=== PATIENT | male | born 1965 | race Caucasian/White ===

== ENCOUNTER 2023-02-19 07:51 | Outpatient (AMB) | payer OTHER, SELFPAY ==
--- NOTE | 2023-02-19 07:54 | MHC.OFFVIS ---
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 Pt reports that he was diagnosed with KAM about 15 years ago. He was told that he had a severe degree of sleep apnea, AHI was 60/hr with heavy snoring. Pt has been using CPAP and had the second CPAP 10 years ago. He uses CPAP nightly, and feels great as long as he use CPAP. He sleeps well and rested and refreshed in the morning. He lost about 50 lb since the last sleep study. His home care company is [employer], and having supplies from [employer]. Sleep questionnaire: Have you ever been diagnosed with a sleep disorder? Yes, KAM about 15 years ago. Have you ever had a sleep study in the past? Yes, in lab sleep study. Have you ever been treated for a sleep disorder? Yes, with CPAP. Do you take medications for a sleep disorder? No. Do you snore? Yes. Do you wake up gasping at night? No with CPAP. Do you have episodes of apneas? Yes. If yes, are they witnessed? Yes. Do you have episodes of nocturnal chest pain or dyspnea? No. Do you have difficulty initiating sleep? No. Do you have difficulty maintaining sleep? No. Do you wake up tired? Yes. Do you have headaches upon awakening? No. Do you wake up with dry mouth or throat? Yes, sometimes. Do you have GERD? No. Do you have nocturia? Not really. Do you have nocturnal leg cramps? Yes. Do you have symptoms of restless legs? No. Do you act out your dreams? No. Sleep hygiene questionnaire: What is your usual sleep routine? Usual bedtime is at 9-10 pm ; Usual wake up time is at 4:30 am. Do you take naps? Yes, sometimes. Is your sleep environment cool, dark, and quiet? Yes. Do you exercise? Yes. Do you take caffeine or other stimulants? Diet soda. Do you use electronics in bed? Watch TV. What is your work schedule? 4:30 am to 3:30 pm Hypersomnolence questionnaire: Do you have daytime tiredness or fatigue? No. Do you easily fall asleep when inactive? No. Have you ever had episodes of sudden weakness? No. Have you ever had episodes of sudden weakness associated with strong emotions? No. PFSH Surgical History (Updated 02/19/23 @ 07:59 by Sho Beltran CMA) History of bilateral knee replacement Family History (Updated 02/19/23 @ 08:01 by Sho Beltran CMA) Father HTN (hypertension) Heart disease Mother Parkinson disease Family/Other Diabetes Social History (Updated 02/19/23 @ 08:01 by Sho Beltran CMA) Alcohol intake: current Alcohol intake frequency: holidays/special occasions only Patient Tobacco Use Status: Never used Tobacco Review of Systems Const All systems reviewed & are unremarkable except as noted in HPI and below ENT Reports Normal hearing present Neuro Reports Normal hearing present Physical Exam Vital Signs: Last Vital Signs Pulse 82 02/19/23 08:02 BP 130/72 02/19/23 08:02 Pulse Ox 98 02/19/23 08:02 Oxygen Delivery Method Room Air 02/19/23 08:02 BMI result Body Mass Index 38.8 Const General: cooperative Nutritional Appearance: obese Orientation/consciousness: patient oriented x3 Limitations: no limitations Neck Neck: Yes full ROM and Yes supple Resp Effort & Inspection: normal respiratory effort and able to speak in complete sentences Neuro General: patient oriented x3, gait normal and moves all extremities Cranial nerves: Yes Bilaterally intact EOM present, Yes Normal facial strength present, Yes Midline tongue present, Yes Symmetric palate elevation present, Yes Normal hearing present, Yes Ability to bilaterally rotate head present and Yes Ability to bilaterally elevate shoulders present Cognition (Neuro): normal cognition Gait exam (Neuro): Normal gait present Psych Appearance: grossly normal Mental Status: mental status grossly normal Speech and movement: Normal speech and movement present Affect: normal affect Attitude: cooperative Assessment & Plan Assessment & Plan (1) Obese: Code(s): E66.9 - Obesity, unspecified (2) KAM on CPAP: Comment: Hx of severe degree of sleep apnea. The AHI was 60/hr with heavy snoring. Code(s): G47.33 - Obstructive sleep apnea (adult) (pediatric) Plan Pt is advised to undergo in lab sleep study to assess for sleep apnea. Will f/u with pt after study to discuss results and appropriate treatment options. Continue to practice sleep hygiene and daily exercise. Wt reduction advised. Pt to call with any worsening concerns or questions. Orders: Orders RT PSG in-lab sleep study Today E11.9 - Type 2 diabetes mellitus without complications, E66.9 - Obesity, unspecified, G47.33 - Obstructive sleep apnea (adult) (pediatric), I10 - Essential (primary) hypertension Coding Level of Care Code New Pt Level 4 (96498) Diagnoses Obese E66.9 KAM on CPAP G47.33
[2023-02-19 08:02] VITALS: BP 130/72; PULSE 82; O2SAT 98; BMI 38.8
== END 2023-02-19 08:32 | disposition home or self-care (01) ==
PROVIDERS: PCP Internal Medicine; Visit Provider Nurse Practitioner Family
DX: E66.9 Obesity, unspecified (principal); G47.33 Obstructive sleep apnea (adult) (pediatric)
CPT/HCPCS: 99204

== ENCOUNTER → 2023-02-19 07:51 | Outpatient (BNVA) | payer OTHER, SELFPAY | PROVIDERS: PCP Internal Medicine; Visit Provider Nurse Practitioner Family ==

== ENCOUNTER → 2023-02-26 19:30 | Outpatient (REF) | payer OTHER, SELFPAY | LOC: HO.SL 19:30 | PROVIDERS: Visit Provider Nurse Practitioner Family | DX: G47.33 Obstructive sleep apnea (adult) (pediatric) (principal) | CPT/HCPCS: 95810 ==

== ENCOUNTER → 2023-02-26 22:03 | Outpatient (BNV) | payer OTHER, SELFPAY | PROVIDERS: Visit Provider Psychiatry & Neurology Neurology | DX: G47.33 Obstructive sleep apnea (adult) (pediatric) (principal) | CPT/HCPCS: 95810 ==

== ENCOUNTER → 2023-04-02 20:30 | Outpatient (REF) | payer OTHER, SELFPAY | LOC: HO.SL 20:30 | PROVIDERS: Visit Provider Nurse Practitioner Family | DX: G47.33 Obstructive sleep apnea (adult) (pediatric) (principal) | CPT/HCPCS: 95811 ==

== ENCOUNTER → 2023-04-02 22:31 | Outpatient (BNV) | payer OTHER, SELFPAY | PROVIDERS: Visit Provider Psychiatry & Neurology Neurology | DX: G47.33 Obstructive sleep apnea (adult) (pediatric) (principal) | CPT/HCPCS: 95811 ==

== ENCOUNTER 2023-06-24 08:44 | Outpatient (AMB) | payer OTHER, SELFPAY ==
--- NOTE | 2023-06-24 08:51 | MHC.OFFVIS ---
Intake Vital Signs 06/24/23 08:53 Height 6 ft Weight 298 lb BMI 40.4 BP 146/90 H Blood Pressure Location Rt brachial Position Sitting Intake Visit Reasons: 4m follow up KAM-Confirmed Intake Note: Patient presents for 4 month follow up Allergies No Known Allergies Allergy (Verified 06/24/23 08:53) HPI HPI Comments History of Present Illness Details 58 y/o male patient presents for follow up of sleep study. The PSG sleep study result was significant for a severe degree of sleep apnea with increased severity in REM sleep. The AHI was 21/hr, REM AHI was 50/hr and oxygen paulina was 85%. Pt was trialed CPAP at 4-8cmH2O and his breathing and oxygenation stabilized with all pressure. The CPAP compliance and therapy response (05/25/23-06/23/23) reviewed. He is on CPAP at 8cmH2O. The usage days 100% and the average usage hours 7 hrs. The AHI was 0.5/hr. Pt reports he uses nasal mask, can have good 7 hrs sleep, rested and refreshed in the morning. He is not tired and has more energy during daytime. [facility] Surgical History History of bilateral knee replacement Family History Father HTN (hypertension) Heart disease Mother Parkinson disease Family/Other Diabetes Social History Alcohol intake: current Alcohol intake frequency: holidays/special occasions only Patient Tobacco Use Status: Never used Tobacco Review of Systems Const All systems reviewed & are unremarkable except as noted in HPI and below ENT Reports Normal hearing present Neuro Reports Normal hearing present Physical Exam Vital Signs: Last Vital Signs BP 146/90 H 06/24/23 08:53 BMI result Body Mass Index 40.4 Const General: cooperative Nutritional Appearance: obese Orientation/consciousness: patient oriented x3 Limitations: no limitations Neck Neck: Yes full ROM and Yes supple Resp Effort & Inspection: normal respiratory effort and able to speak in complete sentences Neuro General: patient oriented x3, gait normal and moves all extremities Cranial nerves: Yes Bilaterally intact EOM present, Yes Normal facial strength present, Yes Midline tongue present, Yes Symmetric palate elevation present, Yes Normal hearing present, Yes Ability to bilaterally rotate head present and Yes Ability to bilaterally elevate shoulders present Cognition (Neuro): normal cognition Gait exam (Neuro): Normal gait present Psych Appearance: grossly normal Mental Status: mental status grossly normal Speech and movement: Normal speech and movement present Affect: normal affect Attitude: cooperative Assessment & Plan Assessment & Plan (1) Obese: Code(s): E66.9 - Obesity, unspecified (2) KAM on CPAP: Comment: Hx of severe degree of sleep apnea with increased severity in REM. The AHI was 21/hr, REM AHI was 50/hr and oxygen paulina was 85% He is on CPAP at 8cmH2O. Code(s): G47.33 - Obstructive sleep apnea (adult) (pediatric) Plan Continue to use CPAP at 8cmH2O as patient experiences good clinical effects, better sleep quality and daytime tiredness has improved. Stressed compliance, use CPAP nightly and more than 4 hrs. Wt reduction advised. Coding Level of Care Code Est Pt Level 3 (01577) Diagnoses Obese E66.9 KAM on CPAP G47.33
[2023-06-24 08:53] VITALS: BP 146/90; BMI 40.4
== END 2023-06-24 09:18 | disposition home or self-care (01) ==
PROVIDERS: PCP Internal Medicine; Visit Provider Nurse Practitioner Family
DX: E66.9 Obesity, unspecified (principal); G47.33 Obstructive sleep apnea (adult) (pediatric)
CPT/HCPCS: 99213

== ENCOUNTER → 2023-06-24 08:44 | Outpatient (BNVA) | payer OTHER, SELFPAY | PROVIDERS: PCP Internal Medicine; Visit Provider Nurse Practitioner Family | DX: G47.33 Obstructive sleep apnea (adult) (pediatric) (principal); E11.9 Type 2 diabetes mellitus without complications; I10 Essential (primary) hypertension; E66.9 Obesity, unspecified ==

== ENCOUNTER 2024-06-24 08:49 | Outpatient (AMB) | payer OTHER, SELFPAY ==
--- NOTE | 2024-06-24 08:55 | MHC.OFFVIS ---
Vital Signs 06/24/24 08:56 Height 6 ft Intake Visit Reasons: 1 yr f/u kam Intake Note: Patient presents for follow up Allergies No Known Allergies Allergy (Verified 06/24/24 08:55) Medication List - Last Reconciled 06/24/24 by Neida Lawton PA-C amlodipine 5 mg PO DAILY atorvastatin 20 mg PO DAILY empagliflozin (Jardiance) 25 mg PO DAILY exenatide microspheres ER (Bydureon BCise) 2 mg subcut QWEEK hydrochlorothiazide 25 mg PO DAILY insulin glargine (Lantus Solostar U-100 Insulin) units subcut insulin glargine (Lantus U-100 Insulin) 50 units subcut QPM lisinopril 40 mg PO DAILY magnesium oxide 400 mg PO DAILY metformin 850 mg PO TID HPI Comments Details: 58 y/o male patient presents for follow up of sleep study. In 2022 Baseline PSG sleep study result was significant for a severe degree of sleep apnea with increased severity in REM sleep. The AHI was 21/hr, REM AHI was 50/hr and oxygen paulina was 85%. Pt was trialed CPAP at 4-8cmH2O and his breathing and oxygenation stabilized with all pressure. The CPAP compliance and therapy response (03/2024-06/23/24) reviewed. He is on CPAP at 8cmH2O. The usage days 100% and the average usage hours 7 hrs. The AHI was 0.5/hr. Pt reports he uses nasal mask daily, cleans his tubing, mask weekly, changes filters as needed. Goes to bed about 9-10pm and gets up at 4am for work with 1x a night for the bathroom. Would like to have travel size machine, he has a good 7 hours of well rested sleep when using the machine. He is not tired and has more energy during daytime. The machine hisses and turns off automatically when not in use, as he wakes in the morning and hangs up his mask. His last A1c was 7, on 3 different meds for diabetes, will discuss [place] with PCP next week. His BP is elevated today, he is on 3 different medications for BP, will see PCP next week, as he does have a FH of dad [place], and mom Parkinsons. Mood, diet and memory is good, will f/u with Labs at PCP's office. BMI is elevated 40.4 today will be f/u with weight managment. [facility] Surgical History History of bilateral knee replacement Family History Father HTN (hypertension) Heart disease Mother Parkinson disease Family/Other Diabetes Social History Alcohol intake: current Alcohol intake frequency: holidays/special occasions only Patient Tobacco Use Status: Never used Tobacco Review of Systems Const All systems reviewed & are unremarkable except as noted in HPI and below Physical Exam Const General: cooperative, comfortable and no acute distress Nutritional Appearance: obese (BMI is 40.4) Orientation/consciousness: patient oriented x3 HEENT Face and sinus: Yes normal facial exam and Yes face symmetric Teeth and gingiva: other ([place] score of 4) Eyes Pupils: Equal, round and reactive pupils present Neck Neck: Yes full ROM and Yes supple Resp Effort & Inspection: normal respiratory effort and able to speak in complete sentences Neuro General: patient oriented x3 and moves all extremities Cranial nerves: Yes CN's II-XII intact bilaterally, Yes Equal, round and reactive pupils present, Yes Normal accommodation reflex present, Yes Bilaterally intact EOM present, Yes Nystagmus not present, Yes Normal facial strength present, Yes Midline tongue present, Yes Ability to bilaterally rotate head present and Yes Ability to bilaterally elevate shoulders present Cognition (Neuro): normal cognition Gait exam (Neuro): Normal gait present Motor exam (neuro): 5/5 motor strength present throughout, Pronator motor function not present, no tremor noted and Normal motor muscle tone present throughout Deep tendon reflexes (DTR's): Right triceps reflex intensity grade: 2+, Left triceps reflex intensity grade: 2+, Rt Biceps (C5, C6): 2+, Left biceps reflex intensity grade: 2+, Right brachioradialis reflex intensity grade: 2+, Left brachioradialis reflex intensity grade: 2+, Right patellar reflex intensity grade: 2+, Left patellar reflex intensity grade: 2+, Right ankle reflex intensity grade: 2+ and Left ankle reflex intensity grade: 2+ Coordination: [id number] test normal Psych Appearance: grossly normal Speech and movement: Normal speech and movement present Affect: normal affect Attitude: cooperative Thought process: Normal thought process present Thought content: Normal thought content present Insight: Good insight present (Psych) Judgement: Good judgement present (Psych) Results Reviewed Results Reviewed: The CPAP compliance and therapy response (03/2024-06/23/24) reviewed. He is on CPAP at 8cmH2O. The usage days 100% and the average usage hours 7 hrs. The AHI was 0.5/hr. Assessment & Plan Assessment & Plan (1) BMI 38.0-38.9,adult: Code(s): Z68.38 - Body mass index [BMI] 38.0-38.9, adult Category: Medical (2) HTN (hypertension): Code(s): I10 - Essential (primary) hypertension Category: Medical (3) KAM on CPAP: Comment: Hx of severe degree of sleep apnea with increased severity in REM. The AHI was 21/hr, REM AHI was 50/hr and oxygen paulina was 85% He is on CPAP at 8cmH2O. Code(s): G47.33 - Obstructive sleep apnea (adult) (pediatric) Category: Medical (4) Leg cramps, sleep related: Code(s): G47.62 - Sleep related leg cramps Category: Medical (5) Irritable mood: Code(s): R45.4 - Irritability and anger Category: Medical Plan Patient Education: Risk of Cardiovascular disease is decreased with good BP Control, he is on 3 BP meds and BP is elevated today: 146/90. #1 Risk Modifier of CV events is hypertension- according to the [place] [employer]. Reduce Stress, mindful therapies, meditate, walk daily, and drink at least 60% of weight in water. Obstructive Sleep Apnea : Improved with Continuous use of CPAP Therapy. Continue use as directed. BMI is Elevated: Good management of Diabetes is essential to preventing neuropathy and other comorbidities. Patient is going to follow up with his PcP in [place], to review Diabetes Protocol, his A1c last checked was 7.1, he is considering Weight management with [facility]. Leg Cramps: Continue taking Magnesium Glycinate 400mg PO at bedtime as needed. Labs: CBC/ CMP/ B12 Folate,MMA, Homocysteine, Vit D, Thyroid Weight Management Referral: [facility]? Patient will f/u with his PCP. F/U in one year or sooner as needed. Orders: Orders Complete Blood Count no Diff Today I10 - Essential (primary) hypertension, Z68.38 - Body mass index [BMI] 38.0-38.9, adult Homocysteine Today G47.33 - Obstructive sleep apnea (adult) (pediatric) TSH reflex Free T4 Today F09 - Unspecified mental disorder due to known physiological condition Comprehensive Met. Panel Today I10 - Essential (primary) hypertension, Z68.38 - Body mass index [BMI] 38.0-38.9, adult Hemoglobin A1c Today I10 - Essential (primary) hypertension, Z68.38 - Body mass index [BMI] 38.0-38.9, adult Methylmalonic Acid Today G47.33 - Obstructive sleep apnea (adult) (pediatric) Vitamin B12 and Folate Today G47.62 - Sleep related leg cramps Vitamin D 25-OH Total Today R45.4 - Irritability and anger Referrals Medical Weight Management Referral E66.01 - Morbid (severe) obesity due to excess calories Medications: New magnesium oxide 400 mg PO DAILY 30 tabs 1RF Coding Level of Care Code Est Pt Level 4 (75596) Diagnoses BMI 38.0-38.9,adult Z68.38 HTN (hypertension) I10 KAM on CPAP G47.33 Leg cramps, sleep related G47.62 Irritable mood R45.4 Time Spent (min) 30 Comment Sleep improved, HTN poorly controlled, A1c poorly Controlled, Statin? Therapy BMI is 40
== END 2024-06-24 09:28 | disposition home or self-care (01) ==
PROVIDERS: PCP Internal Medicine; Visit Provider Physician Assistant Medical
DX: Z68.38 Body mass index [BMI] 38.0-38.9, adult (principal); I10 Essential (primary) hypertension; G47.33 Obstructive sleep apnea (adult) (pediatric); G47.62 Sleep related leg cramps; R45.4 Irritability and anger
CPT/HCPCS: 99214